=== PATIENT | female | born 1970 | race Caucasian/White ===

== ENCOUNTER 2016-04-05 11:39 | Emergency (ER) | payer MEDICAID ==
[2016-04-05 12:27] LABS: APPEARANCE HAZY (CLEAR); BACTERIA FEW /hpf (NONE SEEN); BILIRUBIN NEGATIVE (NEGATIVE); COLOR STRAW (YELLOW); EPITHELIAL CELLS 0-5 /hpf (0-5); GLUCOSE NEGATIVE (NEGATIVE); KETONE NEGATIVE (NEGATIVE); LEUKOCYTE ESTERASE TRACE (NEGATIVE); MUCUS <1+ /lpf (NONE SEEN); NITRITE NEGATIVE (NEGATIVE); PROTEIN NEGATIVE (NEGATIVE); RED CELLS - URINE 0-5 /hpf (0-5); SPECIFIC GRAVITY 1.005 (1.005-1.020); UROBILINOGEN NORMAL (NORMAL); WHITE CELLS - URINE 0-5 /hpf (0-5)
== END 2016-04-05 13:53 | disposition home or self-care (01) ==
LOC: D.ER 11:39
PROVIDERS: Emergency Medicine
DX: R10.9 Unspecified abdominal pain (principal); F17.200 Nicotine dependence, unspecified, uncomplicated

== ENCOUNTER 2017-04-05 19:21 | Emergency (ER) | payer SELFPAY | END 2017-04-05 23:00 | disposition home or self-care (01) | LOC: D.ER 19:21 | DX: G43.909 Migraine, unspecified, not intractable, without status migrainosus (principal); F17.200 Nicotine dependence, unspecified, uncomplicated ==

== ENCOUNTER 2018-12-16 19:22 | Emergency (ER) | payer SELFPAY ==
[~2018-12-16] VITALS: Ht 162.6 cm; Wt 50.9 kg
[2018-12-16 19:39] VITALS: BP 142/101; Ht 162.6 cm; Wt 50.9 kg
== END 2018-12-16 21:36 | disposition home or self-care (01) ==
LOC: D.ER 19:22
DX: S05.02XA Injury of conjunctiva and corneal abrasion without foreign body, left eye, initial encounter (principal); X58.XXXA Exposure to other specified factors, initial encounter

== ENCOUNTER 2019-09-05 20:57 | Emergency (ER) | payer SELFPAY ==
[~2019-09-05] VITALS: Ht 162.6 cm; Wt 50.0 kg
[2019-09-05 21:01] VITALS: Ht 162.6 cm; Wt 50.0 kg
[2019-09-05] MEDS ORDERED: CLEOCIN HCL300 MG PO (21:35)
[2019-09-05 21:54] VITALS: BP 136/70
== END 2019-09-05 21:54 | disposition home or self-care (01) ==
LOC: D.ER 20:57
DX: L03.115 Cellulitis of right lower limb (principal); I10 Essential (primary) hypertension; J44.9 Chronic obstructive pulmonary disease, unspecified; Z72.0 Tobacco use